=== PATIENT | male | born 1955 | race Caucasian/White ===

== ENCOUNTER → 2016-12-25 | Day surgery (SDC) | payer MEDICARE, OTHER | END | disposition home or self-care (01) | LOC: FAS 13:40 | DX: H26.9 Unspecified cataract (principal); F32.9 Major depressive disorder, single episode, unspecified; F17.200 Nicotine dependence, unspecified, uncomplicated; N39.0 Urinary tract infection, site not specified; I10 Essential (primary) hypertension; Z98.890 Other specified postprocedural states; Z79.899 Other long term (current) drug therapy; Z88.2 Allergy status to sulfonamides | CPT/HCPCS: V2632 ==

== ENCOUNTER 2021-01-08 05:42 | Emergency (ER) | payer MEDICARE ==
[~2021-01-08 05:42] MED LIST: AZITHROMYCIN250 MG PO; BROMFED DM COU473 ML PO; PREDNISONE 20MG20 MG PO; PREDNISONE20 MG PO; TESSALON PERLE100 MG PO; ZPAK PO
[2021-01-08 05:56] LABS: BASOPHIL 0.8 % (0-2); EOSINOPHIL 8.8 % (0-7); HCT 40.4 % (42.0-52.0); HGB 13.7 g/dl (13.2-18.0); LYMPHOCYTE 25.3 % (15-48); MCH 31.7 pg (25.0-31.0); MCHC 33.9 g/dL (32.0-36.0); MCV 93.5 fL (78.0-100.0); MONOCYTE 7.4 % (0-12); MPV 9.1 fL (6.0-9.5); NEUTROPHIL 57.4 % (41-80); NRBC 0; PLT 216 K/uL (150-400); RBC 4.32 M/uL (4.70-6.00); WBC 10.8 K/uL (4.0-10.5)
[2021-01-08 06:11] LABS: INR 1.13 (0.9-1.2); PROTHROMBIN TIME 13.8 SECONDS (11.4-13.6); PTT 35.4 SECONDS (22.2-34.7)
[2021-01-08 06:12] LABS: D-DIMER 0.37 ug/mLFEU (0.00-0.41)
[2021-01-08 06:14] LABS: ALBUMIN 3.7 g/dL (3.4-5.0); BILIRUBIN - TOTAL 0.4 mg/dL (0.2-1.0); BUN/CREAT RATIO (CALC) 16.7 RATIO; CREATININE 1.62 mg/dL (0.67-1.17); GLOBULIN (CALCULATION) 3.1 g/dL; POTASSIUM 4.4 mmol/L (3.5-5.1); TOTAL PROTEIN 6.8 g/dL (6.4-8.2)
[2021-01-08] MEDS ORDERED: VIBRAMYCIN100 MG PO (10:37)
[2021-01-08] MEDS ORDERED: MEDROL 4MG DOSEP4 MG PO (10:37)
== END 2021-01-08 10:57 | disposition home or self-care (01) ==
LOC: FER 05:42
PROVIDERS: Emergency Medicine Emergency Medical Services
DX: J44.1 Chronic obstructive pulmonary disease with (acute) exacerbation (principal); R07.89 Other chest pain; I45.10 Unspecified right bundle-branch block; I44.0 Atrioventricular block, first degree; Z99.81 Dependence on supplemental oxygen; Z88.2 Allergy status to sulfonamides
CPT/HCPCS: 36415; 36600; 71045; 80053; 82803; 84484; 85025; 85379; 85610; 85730; 93005; 94640; 94664; J2930

== ENCOUNTER 2021-07-30 13:05 | Emergency (ER) | payer MEDICARE ==
[~2021-07-30 13:05] MED LIST changes: +MEDROL 4MG DOSEP4 MG PO; +VIBRAMYCIN100 MG PO
[2021-07-30 14:22] LABS: BASOPHIL 0.8 % (0-2); EOSINOPHIL 8.3 % (0-7); HCT 44.6 % (42.0-52.0); HGB 15.3 g/dl (13.2-18.0); LYMPHOCYTE 20.2 % (15-48); MCH 31.4 pg (25.0-31.0); MCHC 34.3 g/dL (32.0-36.0); MCV 91.4 fL (78.0-100.0); MONOCYTE 6.5 % (0-12); MPV 9.7 fL (6.0-9.5); NRBC 0; PLT 247 K/uL (150-400); RBC 4.88 M/uL (4.70-6.00); RDW 12.7 % (11.5-14.0); WBC 12.2 K/uL (4.0-10.5)
[2021-07-30 14:31] LABS: BUN/CREAT RATIO (CALC) 12.3 RATIO; CREATININE 1.38 mg/dL (0.67-1.17); POTASSIUM 4.5 mmol/L (3.5-5.1)
[2021-07-30 15:10] LABS: CORONAVIRUS 2019 SARS-COV-2 NEGATIVE (NEGATIVE); INFLUENZA A NAA NEGATIVE (NEGATIVE)
[2021-07-30] MEDS ORDERED: PREDNISONE 20MG20 MG PO (16:09)
[2021-07-30] MEDS ORDERED: VIBRAMYCIN100 MG PO (16:09)
== END 2021-07-30 16:29 | disposition home or self-care (01) ==
LOC: FER 13:05
PROVIDERS: Nurse Practitioner Family
DX: J44.1 Chronic obstructive pulmonary disease with (acute) exacerbation (principal); N18.30 Chronic kidney disease, stage 3 unspecified; Z20.822 Contact with and (suspected) exposure to COVID-19; Z88.2 Allergy status to sulfonamides; Z87.891 Personal history of nicotine dependence
CPT/HCPCS: 36415; 71045; 80048; 84484; 85025; 93005; 94640; 94664; J2930; U0002

== ENCOUNTER → 2022-07-12 | Day surgery (SDC) | payer MEDICARE ==
[~2022-07-12] VITALS: Ht 177.8 cm; Wt 90.7 kg
[~2022-07-12] MED LIST changes: +ASPIRIN EC81 MG PO; +CARDIZEM CD240 MG PO; +CYCLOBENZAPRINE10 MG PO; +CYTOTEC100 MCG PO; +HCTZ12.5 MG PO; +LIPITOR40 MG PO; +NEURONTIN100 MG PO; +PRINIVIL10 MG PO; +SINGULAIR10 MG PO; +VICODIN 10/3251 EACH PO; +WELLBUTRIN SR150 MG PO
[2022-07-12 08:36] LABS: HCT 43.6 % (42.0-52.0); HGB 15.3 g/dl (13.2-18.0); MCH 31.4 pg (25.0-31.0); MCHC 35.1 g/dL (32.0-36.0); MCV 89.5 fL (78.0-100.0); MPV 9.4 fL (6.0-9.5); RBC 4.87 M/uL (4.70-6.00); RDW 12.3 % (11.5-14.0); WBC 11.8 K/uL (4.0-10.5)
[2022-07-12 08:42] LABS: ALBUMIN 4.1 g/dL (3.4-5.0); BILIRUBIN - TOTAL 0.7 mg/dL (0.2-1.0); BUN/CREAT RATIO (CALC) 10.8 RATIO; CREATININE 1.39 mg/dL (0.67-1.17); GLOBULIN (CALCULATION) 3.2 g/dL; POTASSIUM 3.3 mmol/L (3.5-5.1); TOTAL PROTEIN 7.3 g/dL (6.4-8.2)
== END | disposition home or self-care (01) ==
LOC: FAS 07:59
PROVIDERS: Surgery
DX: Z12.11 Encounter for screening for malignant neoplasm of colon (principal); K57.30 Diverticulosis of large intestine without perforation or abscess without bleeding; Z86.010 Personal history of colon polyps; I12.9 Hypertensive chronic kidney disease with stage 1 through stage 4 chronic kidney disease, or unspecified chronic kidney disease; N18.30 Chronic kidney disease, stage 3 unspecified; E78.5 Hyperlipidemia, unspecified; J44.9 Chronic obstructive pulmonary disease, unspecified; Z88.2 Allergy status to sulfonamides; Z88.8 Allergy status to other drugs, medicaments and biological substances; Z87.891 Personal history of nicotine dependence; Z79.82 Long term (current) use of aspirin; Z79.899 Other long term (current) drug therapy
CPT/HCPCS: 36415; 80053; J1610; J2250; J2704; J7120